=== PATIENT | male | born 1995 | race Hispanic/Latino ===

== ENCOUNTER 2018-03-15 20:18 | Emergency (ER) | payer OTHER ==
[~2018-03-15] VITALS: Ht 162.6 cm; Wt 93.4 kg
[2018-03-15 21:07] LABS: IMMATURE GRANULOCYTES 0.5 % (0.0-1.0); MEAN CORPUSCULAR HGB 32.3 pG CALC (26.0-32.0); MEAN CORPUSCULAR HGB CONC 34.5 g/L CALC (32.0-36.0); NEUT# 7.05 thou/uL (1.82-7.42); RED BLOOD COUNT 4.71 mill/uL (4.70-6.10); RED CELL DISTRI WIDTH 12.4 % (11.5-15.5)
[2018-03-15 21:08] LABS: HEMOGLOBIN 15.2 g/dl (14.0-18.0); MEAN CELL VOLUME 93.4 fL CALC (80.0-100.0)
[2018-03-15 21:20] LABS: BILIRUBIN, TOTAL 0.6 mg/dL (0.0-1.4); BUN 12 mg/dL (9-20); BUN/CREATININE RATIO 15 (12-20 (CALC)); CARBON DIOXIDE 25 mmol/l (22-30); CHLORIDE 102 mmol/l (95-108); CREATININE 0.8 mg/dL (0.7-1.3); GFR > 60 ML/MIN (>=60 (CALC)); GFR FOR AFR.AMER. > 60 ML/MIN (>=60 (CALC)); POTASSIUM 3.7 mmol/l (3.5-5.1); SGOT/AST 70 u/l (17-59); SGPT/ALT 141 u/l (21-72); TOTAL PROTEIN 8.3 g/dL (6.3-8.2)
[2018-03-15 21:25] LABS: ALKALINE PHOSPHATASE 78 u/l (38-126); ANION GAP 22 (6-22 (CALC)); SODIUM 145 mmol/l (137-146)
[2018-03-15] MEDS ORDERED: CLONIDINE0.1 MG PO (21:47)
[2018-03-15] MEDS ORDERED: ULTRAM50 M1 PO (21:47)
[2018-03-15 21:49] VITALS: BP 162/113
== END 2018-03-15 22:11 | disposition home or self-care (01) | DRG 563 ==
LOC: ED 20:18
PROVIDERS: Emergency Medicine
PROC: 2W3FX1Z Immobilization of Left Hand using Splint (ICD-10-PCS; principal; 2018-03-15)
DX: S62.305A Unspecified fracture of fourth metacarpal bone, left hand, initial encounter for closed fracture (principal); V49.59XA Passenger injured in collision with other motor vehicles in traffic accident, initial encounter; Y92.414 Local residential or business street as the place of occurrence of the external cause